=== PATIENT | female | born 1995 | race Hispanic/Latino ===

== ENCOUNTER 2018-01-06 18:08 | Emergency (ER) | payer BC, OTHER ==
[2018-01-06] MEDS ORDERED: Sodium Chloride 0.9% 1,000 ML IV STA ×2 (18:25)
[2018-01-06] MEDS ORDERED: Multivitamin (MVI) 10 ML, Thiamine 100 MG, Folic Acid 1 MG in Dextrose 5%/0.45% NS 1,00... IV ONE (18:30)
--- NOTE | 2018-01-06 18:45 | ED PDOC ---
HPI:Nausea, Vomiting, Diarrhea Time Seen by Provider: 01/06/18 18:17 Chief Complaint (Nursing): GI Problem Chief Complaint (Provider): GI Problem History Per: Other (boyfriend) History/Exam Limitations: clinical condition (excessive vomiting) Onset/Duration Of Symptoms: Days (x2) Current Symptoms Are (Timing): Still Present Context: Food Additional Complaint(s): 22 year old female arrives to ED with intractable vomiting associated with fever , bodyaches and severe generalized weakness ongoing since last night. History obtained from boyfriend as patient is unable to answer due to clinical condition. Patient has not been able to tolerate food or liquids and has no recent sick contacts. Her boyfriend reports that patient ate bar food and drank alcohol last night. Over the last few hours she has been lethargic and had near fainting episodes. PMD: none provided Past Medical History Reviewed: Historical Data, Nursing Documentation, Vital Signs Vital Signs: Last Vital Signs Temp 104.2 F H 01/06/18 18:12 Pulse 121 H 01/06/18 18:39 Resp 18 01/06/18 18:39 BP 106/45 L 01/06/18 18:39 Pulse Ox 97 01/06/18 18:39 - Medical History PMH: No Chronic Diseases - Surgical History Surgical History: No Surg Hx - Family History Family History: States: Unknown Family Hx - Social History Current smoker - smoking cessation education provided: No Alcohol: Social Drugs: Denies - Home Medications Home Medications: Ambulatory Orders Medication Instructions Recorded Ciprofloxacin HCl [Cipro] 250 mg PO BID #14 tab 01/06/18 Multivitamin [Multi-Vitamin Daily] 1 tab PO DAILY 01/06/18 Ondansetron ODT [Zofran ODT] 1 odt PO Q6 PRN #20 odt 01/06/18 - Allergies Allergies/Adverse Reactions: Allergies Allergy/AdvReac Type Severity Reaction Status Date / Time No Known Allergies Allergy Verified 01/06/18 18:12 Review of Systems ROS Statement: Except As Marked, All Systems Reviewed And Found Negative Constitutional: Positive for: Fever, Weakness (severe), Malaise, Other ( bodyaches) Gastrointestinal: Positive for: Nausea, Vomiting. Negative for: Other (PO/ fluid toleration) Physical Exam - Reviewed Nursing Documentation Reviewed: Yes Vital Signs Reviewed: Yes - Physical Exam Appears: Positive for: Uncomfortable, In Acute Distress (gastrointestinal distress) Head Exam: Positive for: ATRAUMATIC, NORMOCEPHALIC Skin: Positive for: Warm, Dry, Pallor Eye Exam: Positive for: EOMI, PERRL ENT: Positive for: Pharynx Is (clear), Other (tacky mucous membranes) Neck: Positive for: Painless ROM, Supple Cardiovascular/Chest: Positive for: Tachycardia (with regular rhythm,). Negative for: Murmur Respiratory: Positive for: Normal Breath Sounds Gastrointestinal/Abdominal: Positive for: Normal Exam, Soft. Negative for: Tenderness, Mass, Distended, Guarding, Rebound Back: Positive for: Normal Inspection. Negative for: Decreased ROM Extremity: Positive for: Normal ROM. Negative for: Deformity Lymphatic: Negative for: Adenopathy Neurologic/Psych: Positive for: Mood/Affect (tired), Other (follows verbal commands). Negative for: Motor/Sensory Deficits - Laboratory Results Result Diagrams: 01/06/18 18:37 01/06/18 18:37 - ECG O2 Sat by Pulse Oximetry: 97 (RA) Pulse Ox Interpretation: Normal Medical Decision Making Medical Decision Making: Initial Impression: Intractable vomiting Differential includes but not limited to: gastroenteritis, gastritis, dehydration, electrolyte abnormality, sepsis Initial Plan: * VBG * Alcohol serum * CMP * HCG * Lipase * Magnesium * Phosphorus * Urine * Urine dipstick * CBC * NS 1,000ml IV per 1,000 mls/hr * Pepcid 20mg IVP * Reglan 10mg IV * Tylenol 650mg MS * Zofran 8mg IV * Blood culture * Urine cuture * Accucheck * UA Labs c/w dehydration and severe sepsis. Aggressive fluid hydration continued. 2100 Pt appears markedly better. Vitals and color improved. Reports feeling better, tolerating water 2145 VBG demonstrates correction of lactic acidosis. Pt tolerating PO. 2230 No further episodes of vomiting. Eager to be discharged. Findings d/w pt. Stable for discharge. Scribe Attestation: Documented by Yaneth Escobedo, acting as a scribe for Marjorie Hamilton MD. Provider Scribe Attestation: All medical record entries made by the Scribe were at my direction and personally dictated by me. I have reviewed the chart and agree that the record accurately reflects my personal performance of the history, physical exam, medical decision making, and the department course for this patient. I have also personally directed, reviewed, and agree with the discharge instructions and disposition. Disposition - Clinical Impression Clinical Impression: Vomiting, Dehydration Counseled Patient/Family Regarding: Studies Performed, Diagnosis, Need For Followup - Disposition Referrals: [facility] [place] [Outside] (FOLLOW UP WITH [facility] TOMORROW FOR REEVALUATION AND FOR REFERRAL TO PRIMARY CARE.) [facility] [Outside] Disposition: Routine/Home Disposition Time: 22:25 Condition: IMPROVED Additional Instructions: CONTINUE TO TAKE TYLENOL FOR FEVER DRINK PLENTY OF HYDRATING FLUIDS FOR THE REST OF THE EVENING. BLAND DIET TOMORROW AND ADVANCE TOLERATED RETURN TO ER FOR: --INTRACTABLE PAIN OR VOMITING --FAINTING OR NEAR FAINTING --DIFFICULTY BREATHING -- GISELE WELCH, thank you for letting us take care of you today. Your provider was Marjorie Hamilton MD and you were treated for intractable vomiting and fever. The emergency medical care you received today was directed at your acute symptoms. If you were prescribed any medication, please fill it and take as directed. It may take several days for your symptoms to resolve. Return to the Emergency Department if your symptoms worsen, do not improve, or if you have any other problems. Please contact your doctor or call one of the physicians/clinics you have been referred to that are listed on the Patient Visit Information form that is included in your discharge packet. Bring any paperwork you were given at discharge with you along with any medications you are taking to your follow up visit. Our treatment cannot replace ongoing medical care by a primary care provider outside of the emergency department. Thank you for allowing the [facility] [place] team to be part of your care today. If you had a blood, urine, or wound culture: It will take several days for the results, if any change in treatment is needed we will contact you. Prescriptions: Ciprofloxacin HCl [Cipro] 250 mg PO BID #14 tab Ondansetron ODT [Zofran ODT] 1 odt PO Q6 PRN #20 odt PRN Reason: Nausea/Vomiting Instructions: Urinary Tract Infections in Adults, Dehydration, Adult (DC), Nausea and Vomiting, Adult Forms: [facility] ED School/Work Excuse
[2018-01-06 18:47] LABS: BASO % 0.4 % (0.0-2.0); EOS % 0.1 % (0.0-4.0); HEMOGLOBIN 13.2 g/dL (12.0-16.0); LYMPH # 1.3 K/uL (1.0-4.3); LYMPH % 15.4 % (20.0-40.0); MEAN CELL VOLUME 90.4 fl (81.0-99.0); MEAN CORPUSCULAR HEMOGLOBIN 30.3 pg (27.0-31.0); MEAN CORPUSCULAR HGB CONC 33.5 g/dL (33.0-37.0); MEAN PLATELET VOLUME 10.1 fl (7.2-11.7); MONO # 0.2 K/uL (0.0-0.8); MONO % 2.9 % (0.0-10.0); NEUT # 6.7 K/uL (1.8-7.0); NEUT % 81.2 % (50.0-75.0); RBC 4.36 Mil/uL (3.80-5.20); RED CELL DISTRIBUTION WIDTH 13.1 % (11.5-14.5); WHITE BLOOD COUNT 8.2 K/uL (4.8-10.8)
[2018-01-06 18:48] LABS: VENOUS BLOOD GAS BASE EXCESS -0.4 mmol/L (0.0-2.0); VENOUS BLOOD GAS PCO2 24 mmHg (40-60); VENOUS BLOOD GAS PO2 37 mm/Hg (30-55); VENOUS BLOOD PH 7.54 (7.32-7.43)
[2018-01-06 18:51] LABS: ALB/GLOB RATIO 1.5 (1.0-2.1); ALBUMIN 4.3 g/dL (3.5-5.0); ALT/SGPT 27 U/L (9-52); AST/SGOT 22 U/L (14-36); BLOOD UREA NITROGEN 11 mg/dl (7-17); CALCIUM 9.6 mg/dL (8.4-10.2); GFR AFRICAN-AMERICAN > 60; GFR NON-AFRICAN AMERICAN > 60
[2018-01-06 19:13] LABS: LIPASE 67 U/L (23-300)
[2018-01-06] MEDS ORDERED: Magnesium Sulfate 2 gm/50 ml 2 GM/50 ML BAG IVPB ONE (19:15)
[2018-01-06] MEDS ORDERED: Magnesium Sulfate 2 gm/50 ml 2 GM/50 ML BAG ONE (19:35)
[2018-01-06 20:28] LABS: SQUAMOUS EPITHIAL 6 /hpf (0-5); URINE BACTERIA OCC (<OCC); URINE BILIRUBIN NEGATIVE (NEGATIVE); URINE BLOOD NEGATIVE (NEGATIVE); URINE CLARITY SLIGHTY-CLOUDY (Clear); URINE COLOR YELLOW (YELLOW); URINE GLUCOSE (UA) NEG (Normal); URINE LEUKOCYTE ESTERASE NEG Leu/uL (Negative); URINE PROTEIN 30 mg/dL (NEGATIVE); URINE UROBILINOGEN 0.2-1.0 mg/dL (0.2-1.0)
[2018-01-06 21:40] VITALS: RESP 16; TEMP 98.7
[2018-01-06 21:48] LABS: VENOUS BLOOD GAS BASE EXCESS -0.1 mmol/L (0.0-2.0); VENOUS BLOOD GAS PCO2 36 mmHg (40-60); VENOUS BLOOD GAS PO2 40 mm/Hg (30-55); VENOUS BLOOD PH 7.43 (7.32-7.43)
[2018-01-06 22:36] VITALS: BP 110/59; PULSE 87
[2018-01-07 16:18] VITALS: O2SAT 97
== END 2018-01-06 22:37 | disposition home or self-care (01) ==
LOC: H.ER 18:08
DX: R11.10 Vomiting, unspecified (principal); E86.0 Dehydration; E87.2 Acidosis
CPT/HCPCS: 80053; 81003; 81025; 82803; 82948; 83690; 83735; 84100; 84703; 85025; 87040; 87086; 96365; 96375; 99285; G0480; J2405; J2765; J3411; J7030; J7042

== ENCOUNTER 2018-01-08 17:00 | Inpatient (IN) | payer BC ==
[2018-01-08] MEDS ORDERED: Sodium Chloride 0.9% 1,000 ML IV STA (17:30)
--- NOTE | 2018-01-08 17:51 | ED PDOC ---
HPI: Fever Fever Onset Was: 01/01/18 (see HPI section at end of chart) Past Medical History Reviewed: Historical Data, Nursing Documentation, Vital Signs Vital Signs: Last Vital Signs Temp 100.2 F H 01/08/18 20:19 Pulse 97 H 01/08/18 20:19 Resp 18 01/08/18 20:19 BP 129/70 01/08/18 20:19 Pulse Ox 99 01/08/18 20:19 - Medical History PMH: No Chronic Diseases - Surgical History Other surgeries: spur removal from feet - Family History Family History: States: Unknown Family Hx - Social History Current smoker - smoking cessation education provided: No Alcohol: None Drugs: Denies - Home Medications Home Medications: Ambulatory Orders Medication Instructions Recorded Ciprofloxacin HCl [Cipro] 250 mg PO BID #14 tab 01/06/18 Multivitamin [Multi-Vitamin Daily] 1 tab PO DAILY 01/06/18 Ondansetron ODT [Zofran ODT] 1 odt PO Q6 PRN #20 odt 01/06/18 - Allergies Allergies/Adverse Reactions: Allergies Allergy/AdvReac Type Severity Reaction Status Date / Time No Known Allergies Allergy Verified 01/06/18 18:12 Review of Systems ROS Statement: Except As Marked, All Systems Reviewed And Found Negative Constitutional: Positive for: Fever Gastrointestinal: Positive for: Nausea, Vomiting Musculoskeletal: Positive for: Back Pain Physical Exam - Reviewed Nursing Documentation Reviewed: Yes Vital Signs Reviewed: Yes - Physical Exam Appears: Positive for: No Acute Distress (but febrile) Head Exam: Positive for: ATRAUMATIC Skin: Positive for: Normal Color, Diaphoresis Eye Exam: Positive for: Normal appearance ENT: Positive for: Normal ENT Inspection Neck: Positive for: Normal, Painless ROM, Supple Cardiovascular/Chest: Positive for: Tachycardia Respiratory: Positive for: Normal Breath Sounds. Negative for: Accessory Muscle Use, Respiratory Distress Gastrointestinal/Abdominal: Positive for: Normal Exam, Soft. Negative for: Tenderness Back: Positive for: L CVA Tenderness, R CVA Tenderness Extremity: Positive for: Normal ROM Neurologic/Psych: Positive for: Alert, Oriented (x3). Negative for: Motor/ Sensory Deficits - Laboratory Results Result Diagrams: 01/08/18 17:33 01/08/18 18:00 - ECG O2 Sat by Pulse Oximetry: 98 (RA) Pulse Ox Interpretation: Normal Medical Decision Making Medical Decision Making: pt febrile at 102.6 and tachycardic at 110bpm. Time: 1729 Initial Impression: sepsis, pyelonephritis, dehydration Initial Plan: --VBG --EKG --CMP --Magnesium --Phosphorus --CBC with differential --CXR portable --Lactated ringers 4500ml IV --Motrin 600 mg PO --Normal saline IV --Rocephin 1 gm Sodium Chloride 0.9% 100 ml IVPB --Blood culture --Urine culture --Urinalysis Pt on re-eval appears to be improved. Pt reports she still feels hot. repeat temp: 100.7 F IV Rocpehin running WBC 9.8 Lactate 1.7 Due to failed outpt therapy, Pt placed in observation for continued IV antibiotics and continued evaluation and management. Case discussed with medical on-call, Dr. Redmond, arrangements made for observation Scribe Attestation: Documented by Whit Philip, acting as a scribe for Marjorie Cedeño PA-C. Provider Scribe Attestation: All medical record entries made by the Scribe were at my direction and personally dictated by me. I have reviewed the chart and agree that the record accurately reflects my personal performance of the history, physical exam, medical decision making, and the department course for this patient. I have also personally directed, reviewed, and agree with the discharge instructions and disposition. Disposition - Clinical Impression Clinical Impression: Pyelonephritis, Fever in adult - Patient ED Disposition Is Patient to be Admitted: Yes - Disposition Disposition Time: 21:13 Condition: STABLE Forms: [facility] (Swiss) - POA Present On Arrival: None HPI History Of Present Illness: 22 year old female presents to the ED for the second time this week for continued fever, back pain, and intermittent nausea and vomiting. Patient reports she was evaluated three days ago for the same complaints, receiving IV fluids after being told she was dehydrated and "possibly septic." After pt reports feeling better that day, she was d/c with a UTI and given a script for Cipro, which she has been compliant with. She notes that she has been taking Tylenol and Motrin, last dose around 0900, but the persistence prompted her visit. PMD: none provided
[2018-01-08] MEDS ORDERED: cefTRIAXone (Rocephin) 1 gm Inj ONE (18:04)
[2018-01-08 18:05] LABS: VENOUS BLOOD GAS BASE EXCESS 3.7 mmol/L (0.0-2.0); VENOUS BLOOD GAS PCO2 30 mmHg (40-60); VENOUS BLOOD GAS PO2 27 mm/Hg (30-55); VENOUS BLOOD PH 7.54 (7.32-7.43)
[2018-01-08 18:14] LABS: BASO % 0.1 % (0.0-2.0); HEMOGLOBIN 13.5 g/dL (12.0-16.0); LYMPH # 0.9 K/uL (1.0-4.3); LYMPH % 8.7 % (20.0-40.0); MEAN CELL VOLUME 90.1 fl (81.0-99.0); MEAN CORPUSCULAR HEMOGLOBIN 30.8 pg (27.0-31.0); MEAN CORPUSCULAR HGB CONC 34.1 g/dL (33.0-37.0); MEAN PLATELET VOLUME 9.7 fl (7.2-11.7); MONO # 0.8 K/uL (0.0-0.8); MONO % 8.4 % (0.0-10.0); NEUT # 8.1 K/uL (1.8-7.0); NEUT % 82.8 % (50.0-75.0); PLATELET COUNT 143 K/uL (130-400); RBC 4.39 Mil/uL (3.80-5.20); RED CELL DISTRIBUTION WIDTH 13.2 % (11.5-14.5); WHITE BLOOD COUNT 9.8 K/uL (4.8-10.8)
[2018-01-08 18:37] LABS: ALB/GLOB RATIO 1.3 (1.0-2.1); ALBUMIN 4.2 g/dL (3.5-5.0); ALT/SGPT 32 U/L (9-52); AST/SGOT 22 U/L (14-36); BLOOD UREA NITROGEN 6 mg/dl (7-17); CALCIUM 9.4 mg/dL (8.4-10.2); GFR AFRICAN-AMERICAN > 60; GFR NON-AFRICAN AMERICAN > 60
[2018-01-08 19:13] LABS: SQUAMOUS EPITHIAL 3 /hpf (0-5); URINE BILIRUBIN NEGATIVE (NEGATIVE); URINE BLOOD MODERATE (NEGATIVE); URINE CLARITY CLOUDY (Clear); URINE COLOR YELLOW (YELLOW); URINE GLUCOSE (UA) NEG (Normal); URINE LEUKOCYTE ESTERASE SMALL Leu/uL (Negative); URINE PROTEIN 100 mg/dL (NEGATIVE)
[2018-01-08 20:11] LABS: HYPOCHROMIC SLIGHT; LYMPHOCYTE 11 % (20-50); MICROCYTOSIS SLIGHT; MONOCYTE 8 % (0-10); NEUTROPHIL 81 % (42-75); PLATELET ESTIMATE NORMAL (NORMAL); TOTAL CELLS COUNTED 100
[2018-01-08] MEDS ORDERED: Potassium Chloride 20 mEq ER Tab PO ONE ×2 (20:14→23:17)
[2018-01-09] MEDS: Sodium Chloride 0.9% 1,000 ML IV SCH ×3 (01:32→17:25)
[2018-01-09 06:26] LABS: HEMOGLOBIN 11.5 g/dL (12.0-16.0); MEAN CORPUSCULAR HEMOGLOBIN 30.6 pg (27.0-31.0); RBC 3.75 Mil/uL (3.80-5.20); RED CELL DISTRIBUTION WIDTH 13.2 % (11.5-14.5); WHITE BLOOD COUNT 7.6 K/uL (4.8-10.8)
[2018-01-09 06:59] LABS: ALB/GLOB RATIO 1.1 (1.0-2.1); ALT/SGPT 26 U/L (9-52); AST/SGOT 17 U/L (14-36); BLOOD UREA NITROGEN 6 mg/dl (7-17); CALCIUM 8.6 mg/dL (8.4-10.2); GFR AFRICAN-AMERICAN > 60; GFR NON-AFRICAN AMERICAN > 60
--- NOTE | 2018-01-09 07:40 | CARD ---
APPROVED REPORT Date of service: 01/08/2018 <Conclusion> Sinus tachycardia Otherwise normal ECG
--- NOTE | 2018-01-09 09:15 | RAD ---
Date of service: 01/08/2018 HISTORY: Sepsis Patient COMPARISON: No prior. FINDINGS: LUNGS: The lungs are well inflated and clear. PLEURA: No significant pleural effusion identified, no pneumothorax apparent. CARDIOVASCULAR: Normal. OSSEOUS STRUCTURES: No significant abnormalities. VISUALIZED UPPER ABDOMEN: Normal. OTHER FINDINGS: None. IMPRESSION: No active pulmonary disease.
--- NOTE | 2018-01-09 11:46 | US ---
Date of service: 01/08/2018 PROCEDURE: Ultrasound of the Kidneys HISTORY: pyelo b/l COMPARISON: None available. TECHNIQUE: Sonogram of the kidneys. FINDINGS: RIGHT KIDNEY: Measures: 4.4 x 4.7 x 11.2 cm. Heterogeneous areas of abnormal echo characteristics prickly affecting the mid and lower pole regions consistent with clinically suspected pyelonephritis. No stone, solid mass lesion or hydronephrosis visualized. LEFT KIDNEY: Measures: 4.6 x 4.8 x 10.8 cm. Heterogeneous areas of abnormal echo characteristics primarily affecting the midpole region consistent with clinically suspected pyelonephritis. No stone, solid mass lesion or hydronephrosis visualized. OTHER FINDINGS: None. IMPRESSION: Ultrasound criteria indicative of acute pyelonephritis bilaterally are. Otherwise no suspicious masses, hydronephrosis or calculus disease.
--- NOTE | 2018-01-09 23:34 | CP.PCM.HP ---
History of Present Illness - History of Present Illness History of Present Illness: This is a 22 y/o female admitted for persistent right flank pain, dysuria and fever. She had visisted the Er few days ago foro the same symptoms and was sent home on Cipro. Her symptoms persisted hence sought ER eval. Urine C and S performed few days ago showed E coli sensitive to Cipro. Patient however claims that she did not seemm to have any improvement of symptoms since she was started on Cipro. Present on Admission - Present on Admission Any Indicators Present on Admission: No History of DVT/PE: No History of Uncontrolled Diabetes: No Urinary Catheter: No Decubitus Ulcer Present: No Past Patient History - Past Medical History & Family History Past Medical History?: No - Past Social History Smoking Status: Never Smoked - PULMONARY Hx Respiratory Disorders: No - HEMATOLOGICAL/ONCOLOGICAL Hx AIDS: No Hx Human Immunodeficiency Virus (HIV): No - MUSCULOSKELETAL/RHEUMATOLOGICAL Hx Musculoskeletal Disorders: No Hx Falls: No - PSYCHIATRIC Hx Substance Use: No - SURGICAL HISTORY Hx Surgeries: Yes (2 spurs removed from left foot) Other/Comment: foot sx /spur left - ANESTHESIA Hx Anesthesia: Yes Hx Anesthesia Reactions: No Meds Allergies/Adverse Reactions: Allergies Allergy/AdvReac Type Severity Reaction Status Date / Time No Known Allergies Allergy Verified 01/06/18 18:12 Physical Exam - Eye Exam Eye Exam: Normal appearance - ENT Exam ENT Exam: Mucous Membranes Moist - Cardiovascular Exam Cardiovascular Exam: REGULAR RHYTHM - GI/Abdominal Exam GI & Abdominal Exam: Normal Bowel Sounds Additional comments: no direct or rebound tenderness in any quadrant - Exam Additional comments: tenderness right flank area - Neurological Exam Neurological exam: CN II-XII Intact - Psychiatric Exam Psychiatric exam: Normal Mood Results - Vital Signs Recent Vital Signs: Last Vital Signs Temp 99.5 F 01/09/18 22:16 Pulse 76 01/09/18 17:00 Resp 18 01/09/18 17:00 BP 115/79 01/09/18 17:00 Pulse Ox 98 01/09/18 17:00 - Labs Result Diagrams: 01/09/18 05:20 01/09/18 05:20 Labs: Laboratory Results - last 24 hr 01/09/18 01/09/18 05:20 05:20 WBC 7.6 RBC 3.75 L Hgb 11.5 L D Hct 33.8 L MCV 90.0 MCH 30.6 MCHC 34.0 RDW 13.2 Plt Count 123 L D Sodium 142 Potassium 3.8 Chloride 109 H Carbon Dioxide 23 Anion Gap 14 BUN 6 L Creatinine 0.8 Est GFR ( Amer) > 60 Est GFR (Non-Af Amer) > 60 Random Glucose 88 Calcium 8.6 Total Bilirubin 0.4 AST 17 ALT 26 Alkaline Phosphatase 43 Total Protein 5.7 L Albumin 3.0 L D Globulin 2.7 Albumin/Globulin Ratio 1.1 Assessment & Plan (1) Pyelonephritis Status: Acute (2) Dehydration Status: Acute - Assessment and Plan (Free Text) Plan: start V antibiotics hydrate repeat cbc cm[p ID consult
--- NOTE | 2018-01-10 12:05 | CP.PCM.CON ---
History of Present Illness - History of Present Illness History of Present Illness: 22 y/o female admitted for persistent right flank pain, dysuria and fever. She had visisted the Er few days ago for the same symptoms and was sent home on Cipro. Her symptoms persisted hence sought ER eval. PMH infrequent UTI's SH non drinker non smoker denies IVDU FH- n/c NKDA Review of Systems - Review of Systems All systems: reviewed and no additional remarkable complaints except - Constitutional Constitutional: absent: As Per HPI, Anorexia, Chills, Daytime Sleepiness, Excessive Sweating, Fatigue, Fever, Frequent Falls, Headache, Increased Appetite , Lethargy, Malaise, Night Sweats, Snoring, Sleep Apnea, Weight Gain, Weight Loss, Weakness, Other - EENT Eyes: absent: As Per HPI, Blind Spots, Blurred Vision, Change in Vision, Decreased Night Vision, Diplopia, Discharge, Dry Eye, Exophthalmos, Floaters, Irritation, Itchy Eyes, Loss of Peripheral Vision, Pain, Photophobia, Requires Corrective Lenses, Sees Flashes, Spots in Vision, Tunnel Vision, Other Visual Disturbances, Loss of Vision, Other Ears: absent: As Per HPI, Decreased Hearing, Ear Discharge, Ear Pain, Tinnitus, Abnormal Hearing, Disequilibrium, Dizziness, Other Nose/Mouth/Throat: absent: As Per HPI, Epistaxis, Nasal Congestion, Nasal Discharge, Nasal Obstruction, Nasal Trauma, Nose Pain, Post Nasal Drip, Sinus Pain, Sinus Pressure, Bleeding Gums, Change in Voice, Dental Pain, Dry Mouth, Dysphagia, Halitosis, Hoarsness, Lip Swelling, Mouth Lesions, Mouth Pain, Odynophagia, Sore Throat, Throat Swelling, Tongue Swelling, Facial Pain, Neck Pain, Neck Mass, Other - Breasts Breasts: absent: As Per HPI, Change in Shape, Mass, Pain, Nipple Discharge, Nipple Inversion, Skin Changes, Swelling, Other - Cardiovascular Cardiovascular: absent: As Per HPI, Acrocyanosis, Chest Pain, Chest Pain at Rest , Chest Pain with Activity, Claudication, Diaphoresis, Dyspnea, Dyspnea on Exertion, Edema, Irregular Heart Rhythm, Pain Radiating to Arm/Neck/Jaw, Leg Edema, Leg Ulcers, Lightheadedness, Orthopnea, Palpitations, Paroxysmal Nocturnal Dyspnea, Pedal Edema, Radiating Pain, Rapid Heart Rate, Slow Heart Rate, Syncope, Other - Respiratory Respiratory: absent: As Per HPI, Cough, Dyspnea, Hemoptysis, Dyspnea on Exertion , Wheezing, Snoring, Stridor, Pain on Inspiration, Chest Congestion, Excessive Mucous Production, Change in Mucous Color, Pain with Coughing, Other - Gastrointestinal Gastrointestinal: absent: As Per HPI, Abdominal Pain, Belching, Bloating, Change in Bowel Habits, Change in Stool Character, Coffee Ground Emesis, Constipation, Cramping, Diarrhea, Dyspepsia, Dysphagia, Early Satiety, Excessive Flatus, Fecal Incontinence, Heartburn, Hematemesis, Hematochezia, Loose Stools, Melena, Nausea, Odynophagia, Temesmus, Vomiting, Other - Genitourinary Genitourinary: As Per HPI, Difficulty Urinating, Flank Pain - Reproductive: Female Reproductive:Female: absent: As Per HPI, Amenorrhea, Amenorrhea/ Control, Currently Menstual, Cycle <21 Days, Cycle >35 Days, Cycle Variable, Menses 1-7 Days, Menses >/= 8 Days, Menses Variable, Cycle > 4 Weeks Between, No Menses for 6 Months, Heavy Menses, Light Menses, Normal Menses, Spotting Between Cycles , S/P Hysterectomy, Menopausal, Post Menopausal, Premenarche, Abnormal Vaginal Bleeding, Dysmenorrhea, Dyspareunia, Genital Lesions, Genital Pruritis, Pelvic Pain, Prolapse Symptoms, Sexual Dysfunction, Vaginal Discharge, Vaginal Dryness , Vaginal Odor, Vaginal Pruritis, Other - Menstruation Menstruation: absent: As Per HPI, Amenorrhea, Amenorrhea/ Control, Currently Menstual, Cycle <21 Days, Cycle >35 Days, Cycle Variable, Menses 1-7 Days, Menses >/= 8 Days, Menses Variable, Cycle > 4 Weeks Between, No Menses for 6 Months, Heavy Menses, Light Menses, Normal Menses, Spotting Between Cycles , S/P Hysterectomy, Menopausal, Post Menopausal, Premenarche, Abnormal Vaginal Bleeding, Dysmenorrhea, Other - Musculoskeletal Musculoskeletal: absent: As Per HPI, Abnormal Gait, Arthralgias, Atrophy, Back Pain, Deformity, Joint Swelling, Limited Range of Motion, Loss of Height, Muscle Cramps, Muscle Weakness, Myalgias, Neck Pain, Numbness, Radiating Pain into Limb, Stiffness, Tingling, Other - Integumentary Integumentary: absent: As Per HPI, Acne, Alopecia, Bleeding Lesions, Change in Hair, Change in Nails, Change in Pigmentation, Changing Lesions, Dry Skin, Erythema, Furuncle, Hirsutism, Lesions, New Lesions, Non-Healing Lesions, Photosensitivity, Pruritus, Rash, Skin Pain, Skin Ulcer, Sores, Striae, Swelling , Unusual Bruising, Wounds, Jaundice, Other - Neurological Neurological: absent: As Per HPI, Abnormal Gait, Abnormal Hearing, Abnormal Movements, Abnormal Speech, Behavioral Changes, Burning Sensations, Confusion, Convulsions, Disequilibrium, Dizziness, Numbness, Focal Weakness, Frequent Falls , Headaches, Lack of Coordination, Loss of Vision, Memory Loss, Paresthesias, Radicular Pain, Restless Legs, Sensory Deficit, Syncope, Tingling, Tremor, Vertigo, Weakness, Other Visual Disturbances, Other - Psychiatric Psychiatric: absent: As Per HPI, Abnormal Sleep Pattern, Anhedonia, Anxiety, Auditory Hallucinations, Behavioral Changes, Change in Appetite, Change in Libido, Confusion, Depression, Difficulty Concentrating, Hallucinations, Homicidal Ideation, Hopelessness, Irritability, Memory Loss, Mood Swings, Panic Attacks, Paranoia, Suicidal Ideation, Visual Hallucinations, Tactile Hallucinations, Other - Endocrine Endocrine: absent: As Per HPI, Change in Body Appearance, Change in Libido, Cold Intolorance, Deepening of Voice, Excessive Sweating, Fatigue, Flushing, Heat Intolorance, Increase in Ring/Shoe/Hat Size, Palpitations, Polydipsia, Polyphagia, Polyuria, Other - Hematologic/Lymphatic Hematologic: absent: As Per HPI, Easy Bleeding, Easy Bruising, Lymphadenopathy, Other Past Patient History - Past Medical History & Family History Past Medical History?: No - Past Social History Smoking Status: Never Smoked - PULMONARY Hx Respiratory Disorders: No - HEMATOLOGICAL/ONCOLOGICAL Hx AIDS: No Hx Human Immunodeficiency Virus (HIV): No - MUSCULOSKELETAL/RHEUMATOLOGICAL Hx Musculoskeletal Disorders: No Hx Falls: No - PSYCHIATRIC Hx Substance Use: No - SURGICAL HISTORY Hx Surgeries: Yes (2 spurs removed from left foot) Other/Comment: foot sx /spur left - ANESTHESIA Hx Anesthesia: Yes Hx Anesthesia Reactions: No Meds Allergies/Adverse Reactions: Allergies Allergy/AdvReac Type Severity Reaction Status Date / Time No Known Allergies Allergy Verified 01/06/18 18:12 - Medications Medications: Current Medications Acetaminophen (Tylenol 325mg Tab) 650 mg PO Q4 PRN PRN Reason: Pain, Mild (1-3) Last Admin: 01/10/18 08:50 Dose: 650 mg Acetaminophen (Tylenol 325mg Tab) 650 mg PO Q4 PRN PRN Reason: fever Last Admin: 01/09/18 08:23 Dose: 650 mg Ceftriaxone Sodium 1 gm/ (Sodium Chloride) 100 mls @ 100 mls/hr IVPB Q12 JARRETT PRN Reason: Protocol Last Admin: 01/10/18 08:51 Dose: 100 mls/hr Ibuprofen (Motrin Tab) 600 mg PO Q8 PRN PRN Reason: Pain, moderate (4-7) Last Admin: 01/09/18 14:25 Dose: 600 mg Ondansetron HCl (Zofran Inj) 4 mg IVP Q6 PRN PRN Reason: Nausea/Vomiting Last Admin: 01/09/18 08:23 Dose: 4 mg Physical Exam - Constitutional Appears: Non-toxic, Chronically Ill - Head Exam Head Exam: ATRAUMATIC, NORMAL INSPECTION, NORMOCEPHALIC - Eye Exam Eye Exam: EOMI, PERRL. absent: Scleral icterus - ENT Exam ENT Exam: Mucous Membranes Dry, Normal External Ear Exam, Normal Oropharynx - Neck Exam Neck exam: Negative for: Lymphadenopathy - Respiratory Exam Respiratory Exam: Decreased Breath Sounds, Clear to Auscultation Bilateral - Cardiovascular Exam Cardiovascular Exam: REGULAR RHYTHM, +S1, +S2 - GI/Abdominal Exam GI & Abdominal Exam: Diminished Bowel Sounds, Distended, Soft, Tenderness - Rectal Exam Rectal Exam: Deferred - Exam Exam: NORMAL INSPECTION - Extremities Exam Extremities exam: Positive for: pedal pulses present. Negative for: calf tenderness, pedal edema, tenderness - Back Exam Back exam: absent: CVA tenderness (L), CVA tenderness (R), paraspinal tenderness - Neurological Exam Neurological exam: Alert, CN II-XII Intact, Oriented x3, Reflexes Normal - Psychiatric Exam Psychiatric exam: Normal Mood - Skin Skin Exam: Dry Results - Vital Signs Recent Vital Signs: Last Vital Signs Temp 98.4 F 01/10/18 09:50 Pulse 79 01/10/18 09:00 Resp 19 01/10/18 09:00 BP 124/74 01/10/18 09:00 Pulse Ox 99 01/10/18 09:00 - Labs Result Diagrams: 01/09/18 05:20 01/09/18 05:20 Assessment & Plan (1) Fever in adult Status: Acute (2) Pyelonephritis Status: Acute - Assessment and Plan (Free Text) Assessment: cont IV antibiotics for pyelonephritis CT abd/ pelvis eval will follow
[2018-01-10] MEDS ORDERED: Iohexol 240 (50 ml) PO ONE (14:54)
--- NOTE | 2018-01-10 15:08 | CP.PCM.PN ---
<Olga Rodriguez - Last Filed: 01/10/18 16:20> Subjective - Date & Time of Evaluation Date of Evaluation: 01/10/18 Time of Evaluation: 11:45 - Subjective Subjective: Pt seen this morning with Dr. Redmond. Sitting comfortably in bed. No acute events overnight but in the morning she had fever 101F at 9 am. Still has L flank pain, but otherwise feels better than when she came in. Objective - Vital Signs/Intake and Output Vital Signs (last 24 hours): Temp Pulse Resp BP Pulse Ox 98.4 F 79 19 124/74 99 01/10/18 09:50 01/10/18 09:00 01/10/18 09:00 01/10/18 09:00 01/10/18 09:00 - Medications Medications: Current Medications Acetaminophen (Tylenol 325mg Tab) 650 mg PO Q4 PRN PRN Reason: Pain, Mild (1-3) Last Admin: 01/10/18 08:50 Dose: 650 mg Acetaminophen (Tylenol 325mg Tab) 650 mg PO Q4 PRN PRN Reason: fever Last Admin: 01/09/18 08:23 Dose: 650 mg Ceftriaxone Sodium 1 gm/ (Sodium Chloride) 100 mls @ 100 mls/hr IVPB Q12 JARRETT PRN Reason: Protocol Last Admin: 01/10/18 08:51 Dose: 100 mls/hr Ibuprofen (Motrin Tab) 600 mg PO Q8 PRN PRN Reason: Pain, moderate (4-7) Last Admin: 01/09/18 14:25 Dose: 600 mg Ondansetron HCl (Zofran Inj) 4 mg IVP Q6 PRN PRN Reason: Nausea/Vomiting Last Admin: 01/09/18 08:23 Dose: 4 mg - Labs Labs: 01/09/18 05:20 01/09/18 05:20 - Constitutional Appears: No Acute Distress - Eye Exam Eye Exam: Normal appearance - Respiratory Exam Respiratory Exam: Clear to Ausculation Bilateral, NORMAL BREATHING PATTERN - Cardiovascular Exam Cardiovascular Exam: REGULAR RHYTHM - GI/Abdominal Exam GI & Abdominal Exam: Soft, Normal Bowel Sounds - Back Exam Back Exam: CVA tenderness (L) - Neurological Exam Neurological Exam: Alert, Oriented x3 - Psychiatric Exam Psychiatric exam: Normal Mood - Skin Skin Exam: Normal Color, Warm Additional comments: numerous tattoos Assessment and Plan (1) Pyelonephritis Status: Acute (2) Fever in adult Status: Acute - Assessment and Plan (Free Text) Plan: - continue with IV hydration and antibiotics; add PO levaquin - tylenol PRN for fever - ID consult, recs appreciated - abdomen and pelvis CT w/ contrast - blood culture pending - reg diet - scds - continue rest of plan as ordered <Tito Redmond - Last Filed: 01/11/18 14:32> Objective - Vital Signs/Intake and Output Vital Signs (last 24 hours): Temp Pulse Resp BP Pulse Ox 97.3 F L 61 20 126/71 97 01/11/18 09:00 01/11/18 09:00 01/11/18 09:00 01/11/18 09:00 01/11/18 09:00 - Medications Medications: Current Medications Acetaminophen (Tylenol 325mg Tab) 650 mg PO Q4 PRN PRN Reason: Pain, Mild (1-3) Last Admin: 01/10/18 22:32 Dose: 650 mg Acetaminophen (Tylenol 325mg Tab) 650 mg PO Q4 PRN PRN Reason: fever Last Admin: 01/09/18 08:23 Dose: 650 mg Ceftriaxone Sodium 1 gm/ (Sodium Chloride) 100 mls @ 100 mls/hr IVPB Q12 JARRETT PRN Reason: Protocol Last Admin: 01/11/18 08:11 Dose: 100 mls/hr Sodium Chloride (Sodium Chloride 0.9%) 1,000 mls @ 80 mls/hr IV .[id number] JARRETT Stop: 01/11/18 19:39 Last Admin: 01/11/18 11:22 Dose: Not Given Ibuprofen (Motrin Tab) 600 mg PO Q8 PRN PRN Reason: Pain, moderate (4-7) Last Admin: 01/09/18 14:25 Dose: 600 mg Levofloxacin (Levaquin) 500 mg PO DAILY JARRETT PRN Reason: Protocol Last Admin: 01/11/18 08:11 Dose: 500 mg Ondansetron HCl (Zofran Inj) 4 mg IVP Q6 PRN PRN Reason: Nausea/Vomiting Last Admin: 01/09/18 08:23 Dose: 4 mg - Labs Labs: 01/09/18 05:20 01/09/18 05:20 Assessment and Plan (1) Pyelonephritis Status: Acute (2) Dehydration Status: Acute - Assessment and Plan (Free Text) Plan: I was present during evaluation and discussed with Dr Romaine luis plans of care and mgt. Tito Redmond M.D.
[2018-01-10] MEDS ORDERED: Sodium Chloride 0.9% 50 ML IV ONE (15:39)
[2018-01-10] MEDS ORDERED: Iohexol 300 100 ML IJ ONE (15:39)
--- NOTE | 2018-01-10 16:38 | CT ---
Date of service: 01/10/2018 PROCEDURE: CT Abdomen and Pelvis with contrast HISTORY: pyelonephritis, UTI COMPARISON: 01/08/2018 renal ultrasound TECHNIQUE: Contrast dose: 90 cc Omnipaque 300 Radiation dose: Total exam DLP = 486.01 mGy-cm. This CT exam was performed using one or more of the following dose reduction techniques: Automated exposure control, adjustment of the mA and/or kV according to patient size, and/or use of iterative reconstruction technique. FINDINGS: LOWER THORAX: Unremarkable. LIVER: Unremarkable. No gross lesion or ductal dilatation. GALLBLADDER AND BILE DUCTS: Unremarkable. PANCREAS: Unremarkable. No gross lesion or ductal dilatation. SPLEEN: Unremarkable. ADRENALS: Unremarkable. No mass. KIDNEYS AND URETERS: Diffusely abnormal contrast-enhancing characteristics of the right kidney with perinephric stranding/ inflammatory change. Similar less pronounced changes identified in the upper half of the left kidney. Findings are consistent with bilateral pyelonephritis right more pronounced, extensive than left. VASCULATURE: Unremarkable. No aortic aneurysm. BOWEL: Constipation without fecal impaction or obstruction. APPENDIX: The distal appendix is top normal in diameter, 7 mm. This could represent early appendicitis. No appreciable periappendiceal inflammatory change. No drainable collection or right lower quadrant fluid identified. PERITONEUM: Unremarkable. No free fluid. No free air. LYMPH NODES: Unremarkable. No enlarged lymph nodes. BLADDER: Unremarkable. REPRODUCTIVE: Bilateral adnexal cysts/ follicles. The largest in the right ovary measures 3.2 x 3.7 cm. BONES: No acute fracture. OTHER FINDINGS: None. IMPRESSION: CT manifestations of pyelonephritis bilaterally right greater than left. Top normal distal appendix. In the appropriate clinical setting appendicitis should be considered Additional benign and/or incidental findings described above.
[2018-01-10] MEDS: levoFLOXacin 500 MG TAB PO SCH (17:47)
--- NOTE | 2018-01-10 18:32 | CP.PCM.PN ---
Subjective - Date & Time of Evaluation Date of Evaluation: 01/10/18 Time of Evaluation: 07:00 - Subjective Subjective: still has fever and pain CT notted consider surgical consult cont IV antibiotics Objective - Vital Signs/Intake and Output Vital Signs (last 24 hours): Temp Pulse Resp BP Pulse Ox 98.6 F 69 18 122/71 100 01/10/18 16:49 01/10/18 16:49 01/10/18 16:49 01/10/18 16:49 01/10/18 16:49 - Medications Medications: Current Medications Acetaminophen (Tylenol 325mg Tab) 650 mg PO Q4 PRN PRN Reason: Pain, Mild (1-3) Last Admin: 01/10/18 08:50 Dose: 650 mg Acetaminophen (Tylenol 325mg Tab) 650 mg PO Q4 PRN PRN Reason: fever Last Admin: 01/09/18 08:23 Dose: 650 mg Ceftriaxone Sodium 1 gm/ (Sodium Chloride) 100 mls @ 100 mls/hr IVPB Q12 JARRETT PRN Reason: Protocol Last Admin: 01/10/18 08:51 Dose: 100 mls/hr Ibuprofen (Motrin Tab) 600 mg PO Q8 PRN PRN Reason: Pain, moderate (4-7) Last Admin: 01/09/18 14:25 Dose: 600 mg Levofloxacin (Levaquin) 500 mg PO DAILY JARRETT PRN Reason: Protocol Last Admin: 01/10/18 17:47 Dose: 500 mg Ondansetron HCl (Zofran Inj) 4 mg IVP Q6 PRN PRN Reason: Nausea/Vomiting Last Admin: 01/09/18 08:23 Dose: 4 mg - Labs Labs: 01/09/18 05:20 01/09/18 05:20 Assessment and Plan (1) Fever in adult Status: Acute (2) Pyelonephritis Status: Acute
[2018-01-10] MEDS: Sodium Chloride 0.9% 1,000 ML IV SCH (21:53)
[2018-01-11] MEDS: levoFLOXacin 500 MG TAB PO SCH (08:11)
[2018-01-11 08:31] VITALS: BP 126/71; PULSE 61; RESP 20; TEMP 97.3; O2SAT 97
[2018-01-11] MEDS: Sodium Chloride 0.9% 1,000 ML IV SCH (11:22)
--- NOTE | 2018-01-11 14:24 | CP.PCM.DIS ---
Provider - Provider Date of Admission: 01/10/18 12:45 Attending physician: Tito Redmond MD Time Spent in preparation of Discharge (in minutes): 30 Hospital Course - Lab Results Lab Results: Micro Results 01/08/18 18:21 Blood Blood Culture - Preliminary NO GROWTH AFTER 48 HOURS 01/08/18 18:00 Blood Blood Culture - Preliminary NO GROWTH AFTER 48 HOURS 01/08/18 18:00 Urine,Clean Catch Urine Culture - Final No Growth (<1,000 CFU/ML) Most Recent Lab Values WBC 7.6 K/uL (4.8-10.8) 01/09/18 05:20 RBC 3.75 Mil/uL (3.80-5.20) L 01/09/18 05:20 Hgb 11.5 g/dL (12.0-16.0) L D 01/09/18 05:20 Hct 33.8 % (34.0-47.0) L 01/09/18 05:20 MCV 90.0 fl (81.0-99.0) 01/09/18 05:20 MCH 30.6 pg (27.0-31.0) 01/09/18 05:20 MCHC 34.0 g/dL (33.0-37.0) 01/09/18 05:20 RDW 13.2 % (11.5-14.5) 01/09/18 05:20 Plt Count 123 K/uL (130-400) L D 01/09/18 05:20 MPV 9.7 fl (7.2-11.7) 01/08/18 17:33 Neut % (Auto) 82.8 % (50.0-75.0) H 01/08/18 17:33 Lymph % (Auto) 8.7 % (20.0-40.0) L 01/08/18 17:33 Bacon % (Auto) 8.4 % (0.0-10.0) 01/08/18 17:33 Eos % (Auto) 0.0 % (0.0-4.0) 01/08/18 17:33 Baso % (Auto) 0.1 % (0.0-2.0) 01/08/18 17:33 Neut # (Auto) 8.1 K/uL (1.8-7.0) H 01/08/18 17:33 Lymph # (Auto) 0.9 K/uL (1.0-4.3) L 01/08/18 17:33 Bacon # (Auto) 0.8 K/uL (0.0-0.8) 01/08/18 17:33 Eos # (Auto) 0.0 K/uL (0.0-0.7) 01/08/18 17:33 Baso # (Auto) 0.0 K/uL (0.0-0.2) 01/08/18 17:33 Neutrophils % (Manual) 81 % (42-75) H 01/08/18 17:33 Lymphocytes % (Manual) 11 % (20-50) L 01/08/18 17:33 Monocytes % (Manual) 8 % (0-10) 01/08/18 17:33 Platelet Estimate Normal (NORMAL) 01/08/18 17:33 Hypochromasia (manual) Slight 01/08/18 17:33 Microcytosis (manual) Slight 01/08/18 17:33 pO2 27 mm/Hg (30-55) L 01/08/18 17:33 VBG pH 7.54 (7.32-7.43) H 01/08/18 17:33 VBG pCO2 30 mmHg (40-60) L 01/08/18 17:33 VBG HCO3 26.6 mmol/L 01/08/18 17:33 VBG Total CO2 26.6 mmol/L (22-28) 01/08/18 17:33 VBG O2 Sat (Calc) 49.9 % (40-65) 01/08/18 17:33 VBG Base Excess 3.7 mmol/L (0.0-2.0) H 01/08/18 17:33 VBG Potassium 3.0 mmol/L (3.6-5.2) L 01/08/18 17:33 Sodium 138.0 mmol/L (132-148) 01/08/18 17:33 Chloride 105.0 mmol/L (98-107) 01/08/18 17:33 Glucose 112 mg/dL (65-105) H 01/08/18 17:33 Lactate 1.7 mmol/L (0.7-2.1) 01/08/18 17:33 FiO2 21.0 % 01/08/18 17:33 Sodium 142 mmol/l (132-148) 01/09/18 05:20 Potassium 3.8 MMOL/L (3.6-5.0) 01/09/18 05:20 Chloride 109 mmol/L (98-107) H 01/09/18 05:20 Carbon Dioxide 23 mmol/L (22-30) 01/09/18 05:20 Anion Gap 14 (10-20) 01/09/18 05:20 BUN 6 mg/dl (7-17) L 01/09/18 05:20 Creatinine 0.8 mg/dl (0.7-1.2) 01/09/18 05:20 Est GFR ( Amer) > 60 01/09/18 05:20 Est GFR (Non-Af Amer) > 60 01/09/18 05:20 Random Glucose 88 mg/dL (65-105) 01/09/18 05:20 Calcium 8.6 mg/dL (8.4-10.2) 01/09/18 05:20 Phosphorus 1.4 mg/dl (2.5-4.5) L 01/08/18 18:00 Magnesium 1.9 MG/DL (1.6-2.3) 01/08/18 18:00 Total Bilirubin 0.4 mg/dl (0.2-1.3) 01/09/18 05:20 AST 17 U/L (14-36) 01/09/18 05:20 ALT 26 U/L (9-52) 01/09/18 05:20 Alkaline Phosphatase 43 U/L (38-126) 01/09/18 05:20 Total Protein 5.7 G/DL (6.3-8.2) L 01/09/18 05:20 Albumin 3.0 g/dL (3.5-5.0) L D 01/09/18 05:20 Globulin 2.7 gm/dL (2.2-3.9) 01/09/18 05:20 Albumin/Globulin Ratio 1.1 (1.0-2.1) 01/09/18 05:20 Procalcitonin 0.84 NG/ML (0.19-0.49) H 01/10/18 18:43 Venous Blood Potassium 3.0 mmol/L (3.6-5.2) L 01/08/18 17:33 Urine Color Yellow (YELLOW) 01/08/18 18:00 Urine Clarity Cloudy (Clear) 01/08/18 18:00 Urine pH 6.0 (5.0-8.0) 01/08/18 18:00 Ur Specific [place] 1.015 (1.003-1.030) 01/08/18 18:00 Urine Protein 100 mg/dL (NEGATIVE) 01/08/18 18:00 Urine Glucose (UA) Neg mg/dL (Normal) 01/08/18 18:00 Urine Ketones 80 mg/dL (NEGATIVE) 01/08/18 18:00 Urine Blood Moderate (NEGATIVE) 01/08/18 18:00 Urine Nitrate Negative (NEGATIVE) 01/08/18 18:00 Urine Bilirubin Negative (NEGATIVE) 01/08/18 18:00 Urine Urobilinogen 2.0 mg/dL (0.2-1.0) H 01/08/18 18:00 Ur Leukocyte Esterase Small Meena/uL (Negative) 01/08/18 18:00 Urine RBC (Auto) 14 /hpf (0-3) H 01/08/18 18:00 Urine Microscopic WBC 35 /hpf (0-5) H 01/08/18 18:00 Ur Squamous Epith Cells 3 /hpf (0-5) 01/08/18 18:00 - Hospital Course Hospital Course: This is a 22 y/o female admitted for recurrent fever and UTI. She was sent initially on Cipro but sx persisted hence was admitted. Noted E cooli sens to Cipro and other IV meds. She was placed on Rocephin and started on Levaquin and did very well. US and CT scan showed bilateral pyelonephritis right worse than left. It was also noted on CT scan that the appendix is top normal in size. Patient had no lower abdominal pain and evaluation on discharge showed no direct or rebound tenderness on the LLQ. Patient was afebrile for more than 24 hours prior to discharge. She was sent home on Levaquin 500 mg Po oD x 7 to 10 days. She was advised to call office if abd pain ensues or fever recurs. Otherwise she was advised to followup in my office next week. Discharge Exam - Head Exam Head Exam: ATRAUMATIC, NORMAL INSPECTION, NORMOCEPHALIC - Eye Exam Eye Exam: Normal appearance - Respiratory Exam Respiratory Exam: NORMAL BREATHING PATTERN - Cardiovascular Exam Cardiovascular Exam: REGULAR RHYTHM - GI/Abdominal Exam GI & Abdominal Exam: Normal Bowel Sounds Additional comments: no direct or rebound tenderness on any quadrant - Neurological Exam Neurological exam: CN II-XII Intact - Psychiatric Exam Psychiatric exam: Normal Mood Discharge Plan - Follow Up Plan Condition: STABLE Disposition: HOME/ ROUTINE Instructions: Fever, Adult (DC), Urinary Tract Infection in Women (DC) Additional Instructions: follow up with primary MD 1 week Advised follow up in my office in 1 week. Referrals: at [facility] [Outside] Pérez Tipton MD [Staff Provider] -
--- NOTE | 2018-01-21 13:05 | PQF ---
PROVIDER RESPONSE TEXT: Patient with sepsis, b/l pyelonephritis, ecoli in urine cx. Sepsis present on admissions REVIEWER QUERY TEXT: Rule Out Sepsis Clarification Sepsis is documented in the Medical Record in the ER. Please clarify whether: -- Patient has sepsis - Please document confirmed, suspected or probable causative organism - Please document confirmed, suspected or probable localized infection - Please clarify if sepsis is related to a device - Please clarify if sepsis was present on admission -- Sepsis was ruled out (include corresponding diagnosis for patient?s clinical picture and treatment ) -- Patient had sepsis which is resolved -- Other, please specify The patient's Clinical Indicators include: Recent visit to the ER on 01/06/18 and was given Cipro for a UTI was told at that time she was "possibl y Septic". Presents now on 01/08/18 with c/o abdominal pain, nausea, vomiting, bilateral flank pain. ER: Initial IMP: sepsis, pyelonephritis, dehydration ID: Fever in adult, pyelonephritis TEMP: 102.6, 103, 100.2, 99.6, 98.3, 99.4, 101.2, 101,2 HR: 110, 103, 97, 98, 98, 74, 90, 90, 91, 76, 77 BP: 128/76, 127/75, 129/70, 124/81 R 16, 20, 18, 16 WBC 9.8 L shift , lactate 1.7, procalcitonin 0.84, Urine CS on 01/06/18: >100,000 CFU E Coli. Treated with Rocephin and Levaquin Query created by: Anne Zamorano on 01/13/2018 6:45 AM Electronically signed by: Tito Redmond MD 01/21/2018 1:03 PM
== END 2018-01-11 16:28 | disposition home or self-care (01) | DRG 872 ==
LOC: H.ER 17:00 → H.ERHOLD 20:59 → H.MEDSURG1 01-09 00:36 → OBSVTOIN 01-10 12:45
PROVIDERS: ADMIT Family Medicine; ATTEND Family Medicine
DX: A41.9 Sepsis, unspecified organism (principal); N12 Tubulo-interstitial nephritis, not specified as acute or chronic; E86.0 Dehydration; B96.20 Unspecified Escherichia coli [E. coli] as the cause of diseases classified elsewhere

== ENCOUNTER 2018-05-06 16:58 | Emergency (ER) | payer BC ==
[2018-05-06 17:03] VITALS: O2SAT 100
[2018-05-06 17:56] LABS: BASO % 0.5 % (0.0-2.0); EOS % 0.4 % (0.0-4.0); HEMOGLOBIN 12.2 g/dL (12.0-16.0); LYMPH # 1.3 K/uL (1.0-4.3); LYMPH % 15.7 % (20.0-40.0); MEAN CELL VOLUME 90.6 fl (81.0-99.0); MEAN CORPUSCULAR HEMOGLOBIN 30.2 pg (27.0-31.0); MEAN CORPUSCULAR HGB CONC 33.3 g/dL (33.0-37.0); MEAN PLATELET VOLUME 10.1 fl (7.2-11.7); MONO # 0.4 K/uL (0.0-0.8); MONO % 4.4 % (0.0-10.0); NEUT # 6.8 K/uL (1.8-7.0); RBC 4.05 Mil/uL (3.80-5.20); RED CELL DISTRIBUTION WIDTH 13.2 % (11.5-14.5); WHITE BLOOD COUNT 8.5 K/uL (4.8-10.8)
[2018-05-06 18:26] LABS: ACETAMINOPHEN < 10.0 ug/ml (10.0-30.0); SALICYLATE < 1.0 mg/dl
[2018-05-06 18:27] LABS: BLOOD UREA NITROGEN 19 mg/dl (7-17); CALCIUM 9.3 mg/dL (8.4-10.2); GFR NON-AFRICAN AMERICAN > 60
[2018-05-06 18:35] LABS: BARBITURATES, UR NEGATIVE (NEGATIVE); BENZODIAZEPINES, UR NEGATIVE (NEGATIVE); OPIATES, UR NEGATIVE (NEGATIVE); PHENCYCLIDINE, UR NEGATIVE (NEGATIVE)
[2018-05-06 18:42] LABS: URINE BILIRUBIN NEGATIVE (NEGATIVE); URINE CLARITY CLEAR (Clear); URINE COLOR YELLOW (YELLOW); URINE GLUCOSE (UA) NEGATIVE (Normal)
[2018-05-06 18:43] LABS: SQUAMOUS EPITHIAL < 1 /hpf (0-5); URINE BLOOD NEGATIVE (NEGATIVE); URINE LEUKOCYTE ESTERASE NEGATIVE Leu/uL (Negative); URINE PROTEIN NEGATIVE (NEGATIVE)
--- NOTE | 2018-05-06 18:54 | ED PDOC ---
HPI: Psych/Substance Abuse Time Seen by Provider: 05/06/18 17:00 Chief Complaint (Nursing): Psychiatric Evaluation Chief Complaint (Provider): Psychiatric Evaluation History Per: Patient Onset/Duration Of Symptoms: Days (x1) Current Symptoms Are (Timing): Still Present Additional Complaint(s): 23 year old female arrives to ED with a complaint of anxiety status post argument with her boyfriend. Patient omits further information with vague answers to questions. Upon arrival to ED, patient is noted to be screaming in bed. PCP: none provided Past Medical History Reviewed: Historical Data, Nursing Documentation, Vital Signs Vital Signs: Last Vital Signs Temp 99 F 05/06/18 17:01 Pulse 120 H 05/06/18 17:01 Resp 20 05/06/18 17:01 BP 143/111 H 05/06/18 17:01 Pulse Ox 100 05/06/18 17:01 - Medical History PMH: No Chronic Diseases Denies: HIV - Surgical History Surgical History: No Surg Hx - Family History Family History: States: Unknown Family Hx - Social History Current smoker - smoking cessation education provided: No Alcohol: None Drugs: Denies - Home Medications Home Medications: Ambulatory Orders Medication Instructions Recorded RX: Multivitamin [Multi-Vitamin 1 tab PO DAILY 01/06/18 Daily] RX: levoFLOXacin [Levaquin] 500 mg PO DAILY #10 tab 01/11/18 - Allergies Allergies/Adverse Reactions: Allergies Allergy/AdvReac Type Severity Reaction Status Date / Time No Known Allergies Allergy Verified 05/06/18 17:01 Review of Systems ROS Statement: Except As Marked, All Systems Reviewed And Found Negative Psych: Positive for: Anxiety Physical Exam - Reviewed Nursing Documentation Reviewed: Yes Vital Signs Reviewed: Yes - Physical Exam Appears: Positive for: Non-toxic, No Acute Distress Head Exam: Positive for: ATRAUMATIC, NORMAL INSPECTION, NORMOCEPHALIC Skin: Positive for: Normal Color Eye Exam: Positive for: Normal appearance, EOMI, PERRL ENT: Positive for: Normal ENT Inspection Neck: Positive for: Normal Cardiovascular/Chest: Positive for: Regular Rate, Rhythm Respiratory: Positive for: Normal Breath Sounds. Negative for: Wheezing, Respiratory Distress Gastrointestinal/Abdominal: Positive for: Normal Exam Extremity: Positive for: Normal ROM (upper/lower) Neurologic/Psych: Positive for: Alert, Oriented - Laboratory Results Result Diagrams: 05/06/18 17:49 05/06/18 17:49 Urine POC: Negative - ECG O2 Sat by Pulse Oximetry: 100 (RA) Pulse Ox Interpretation: Normal Medical Decision Making Medical Decision Making: Initial Impression: Anxiety Initial Plan: * EKG * Labs * 1:1 OBS Time: 2049 --Upon crisis evaluation, patient is medically stable for discharge home, as per Dr. Chan, and requires no further treatment in the ED at this time. Counseling was provided and all questions were answered regarding diagnosis. Repeat vitals are improved. There is agreement to discharge plan. Return if symptoms persist or worsen. repeat pulse normal (80s) Clinical Impression: Adjustment disorder Scribe Attestation: Documented by Yaneth Escobedo, acting as a scribe for Nolvia Dawson MD. Provider Scribe Attestation: All medical record entries made by the Scribe were at my direction and personally dictated by me. I have reviewed the chart and agree that the record accurately reflects my personal performance of the history, physical exam, medical decision making, and the department course for this patient. I have also personally directed, reviewed, and agree with the discharge instructions and disposition. Disposition - Clinical Impression Clinical Impression: Adjustment disorder - Patient ED Disposition Is Patient to be Admitted: No Counseled Patient/Family Regarding: Studies Performed, Diagnosis - Disposition Disposition: Routine/Home Disposition Time: 20:40 Condition: IMPROVED Additional Instructions: follow up with outpatient services return to the ED with any worsening or concerning symptoms Instructions: Adjustment Disorder Forms: [employer] (Guatemalan)
[2018-05-06 22:05] VITALS: BP 123/67; PULSE 73; RESP 18; TEMP 99.1
--- NOTE | 2018-05-07 07:05 | CARD ---
APPROVED REPORT Date of service: 05/06/2018 EKG Measurement Heart [id number] <Conclusion> Normal sinus rhythm Normal ECG
== END 2018-05-06 21:10 | disposition home or self-care (01) ==
LOC: H.ER 16:58
DX: F43.22 Adjustment disorder with anxiety (principal); Z00.8 Encounter for other general examination
CPT/HCPCS: 80048; 81003; 81025; 85025; 93005; 99283; G0480

== ENCOUNTER 2018-07-03 15:59 | Emergency (ER) | payer BC ==
[2018-07-03 16:31] VITALS: BP 119/71; PULSE 73; RESP 18; TEMP 98.1; O2SAT 100
--- NOTE | 2018-07-03 16:36 | ED PDOC ---
HPI: Psych/Substance Abuse Time Seen by Provider: 07/03/18 16:34 Chief Complaint (Nursing): Psychiatric Evaluation Chief Complaint (Provider): crisis eval History Per: Patient Additional Complaint(s): 23 y/o female presents for crisis eval. Patient states since last night she has been feeling suicidal but she denies plan. Patient was at her therapist office and her therapist recommended that she come to the ED. Patient denies any alcohol or drug use and she offers no acute medical complaints. Past Medical History Reviewed: Historical Data, Nursing Documentation, Vital Signs Vital Signs: Last Vital Signs Temp 98.1 F 07/03/18 16:28 Pulse 73 07/03/18 16:28 Resp 18 07/03/18 16:28 BP 119/71 07/03/18 16:28 Pulse Ox 100 07/03/18 16:28 - Medical History PMH: No Chronic Diseases - Surgical History Surgical History: No Surg Hx - Family History Family History: States: No Known Family Hx - Living Arrangements Living Arrangements: With Family - Social History Current smoker - smoking cessation education provided: No Alcohol: None Drugs: Denies - Home Medications Home Medications: Ambulatory Orders Medication Instructions Recorded Multivitamin [Multi-Vitamin Daily] 1 tab PO DAILY 01/06/18 levoFLOXacin [Levaquin] 500 mg PO DAILY #10 tab 01/11/18 - Allergies Allergies/Adverse Reactions: Allergies Allergy/AdvReac Type Severity Reaction Status Date / Time No Known Allergies Allergy Verified 07/03/18 16:27 Review of Systems ROS Statement: Except As Marked, All Systems Reviewed And Found Negative Psych: Positive for: Suicidal ideation Physical Exam - Reviewed Nursing Documentation Reviewed: Yes Vital Signs Reviewed: Yes - Physical Exam Appears: Positive for: Well, Non-toxic, No Acute Distress Skin: Positive for: Normal Color. Negative for: Rash Eye Exam: Positive for: Normal appearance Cardiovascular/Chest: Positive for: Regular Rate, Rhythm Respiratory: Positive for: Normal Breath Sounds. Negative for: Wheezing, Respiratory Distress Extremity: Positive for: Normal ROM Neurologic/Psych: Positive for: Alert, Oriented - Laboratory Results Result Diagrams: 07/03/18 18:00 07/03/18 18:00 - ECG O2 Sat by Pulse Oximetry: 100 Pulse Ox Interpretation: Normal Medical Decision Making Medical Decision Makin23 y/o here for crisis eval Plan: 1:1 observation Crisis consult CBC CMP UA UDS BAL CXR - ordered but patient refused study As per crisis counselor and psychiatrist plant operations engineer Dr. Izquierdo, patient does not meet criteria for admission and is stable for discharge. Disposition - Clinical Impression Clinical Impression: Depression Counseled Patient/Family Regarding: Need For Followup - Disposition Referrals: [facility] [Outside] Disposition: Routine/Home Disposition Time: 20:07 Condition: STABLE Additional Instructions: Follow up as directed. Instructions: Depression Forms: [employer] (Surinamese) Results - Lab Results Lab Results: 07/03/18 07/03/18 07/03/18 18:00 18:00 17:23 WBC 4.9 RBC 4.32 Hgb 13.0 Hct 38.7 MCV 89.6 MCH 30.0 MCHC 33.5 RDW 13.3 Plt Count 149 MPV 11.0 Neut % (Auto) 55.2 Lymph % (Auto) 36.1 [place] % (Auto) 7.5 Eos % (Auto) 0.5 Baso % (Auto) 0.7 Neut # (Auto) 2.7 Lymph # (Auto) 1.8 [place] # (Auto) 0.4 Eos # (Auto) 0.0 Baso # (Auto) 0.0 Sodium 140 Potassium 4.0 Chloride 101 Carbon Dioxide 24 Anion Gap 19 BUN 12 Creatinine 0.8 Est GFR ( Amer) > 60 Est GFR (Non-Af Amer) > 60 Random Glucose 76 Calcium 9.7 Total Bilirubin 0.4 AST 22 ALT 35 Alkaline Phosphatase 52 Total Protein 7.4 Albumin 4.4 Globulin 3.0 Albumin/Globulin Ratio 1.4 Urine Color Yellow Urine Clarity Cloudy Urine pH 5.0 Ur Specific [place] 1.031 H Urine Protein 100 Urine Glucose (UA) Neg Urine Ketones 80 Urine Blood Small Urine Nitrate Negative Urine Bilirubin Negative Urine Urobilinogen 0.2-1.0 Ur Leukocyte Esterase Neg Urine RBC (Auto) 5 H Urine Microscopic WBC 4 Ur Squamous Epith Cells 28 H Urine Bacteria Rare Hyaline Casts 3-5 H Urine Opiates Screen Urine Methadone Screen Ur Barbiturates Screen Ur Phencyclidine Scrn Ur Amphetamines Screen U Benzodiazepines Scrn U Oth Cocaine Metabols U Cannabinoids Screen Alcohol, Quantitative < 10 07/03/18 17:23 WBC RBC Hgb Hct MCV MCH MCHC RDW Plt Count MPV Neut % (Auto) Lymph % (Auto) [place] % (Auto) Eos % (Auto) Baso % (Auto) Neut # (Auto) Lymph # (Auto) [place] # (Auto) Eos # (Auto) Baso # (Auto) Sodium Potassium Chloride Carbon Dioxide Anion Gap BUN Creatinine Est GFR ( Amer) Est GFR (Non-Af Amer) Random Glucose Calcium Total Bilirubin AST ALT Alkaline Phosphatase Total Protein Albumin Globulin Albumin/Globulin Ratio Urine Color Urine Clarity Urine pH Ur Specific [place] Urine Protein Urine Glucose (UA) Urine Ketones Urine Blood Urine Nitrate Urine Bilirubin Urine Urobilinogen Ur Leukocyte Esterase Urine RBC (Auto) Urine Microscopic WBC Ur Squamous Epith Cells Urine Bacteria Hyaline Casts Urine Opiates Screen Negative Urine Methadone Screen Negative Ur Barbiturates Screen Negative Ur Phencyclidine Scrn Negative Ur Amphetamines Screen Negative U Benzodiazepines Scrn Negative U Oth Cocaine Metabols Negative U Cannabinoids Screen Negative Alcohol, Quantitative
[2018-07-03 18:25] LABS: SQUAMOUS EPITHIAL 28 /hpf (0-5); URINE BACTERIA RARE (<OCC); URINE BILIRUBIN NEGATIVE (NEGATIVE); URINE BLOOD SMALL (NEGATIVE); URINE CLARITY CLOUDY (Clear); URINE GLUCOSE (UA) NEG (NEGATIVE); URINE LEUKOCYTE ESTERASE NEG Leu/uL (Negative); URINE PROTEIN 100 mg/dL (NEGATIVE); URINE UROBILINOGEN 0.2-1.0 mg/dL (0.2-1.0)
[2018-07-03 18:25] LABS: BASO % 0.7 % (0.0-2.0); EOS % 0.5 % (0.0-4.0); LYMPH # 1.8 K/uL (1.0-4.3); LYMPH % 36.1 % (20.0-40.0); MEAN CELL VOLUME 89.6 fl (81.0-99.0); MEAN CORPUSCULAR HGB CONC 33.5 g/dL (33.0-37.0); MONO # 0.4 K/uL (0.0-0.8); MONO % 7.5 % (0.0-10.0); NEUT # 2.7 K/uL (1.8-7.0); NEUT % 55.2 % (50.0-75.0); RBC 4.32 Mil/uL (3.80-5.20); RED CELL DISTRIBUTION WIDTH 13.3 % (11.5-14.5); WHITE BLOOD COUNT 4.9 K/uL (4.8-10.8)
[2018-07-03 18:26] LABS: URINE COLOR YELLOW (YELLOW)
[2018-07-03 18:33] LABS: BARBITURATES, UR NEGATIVE (NEGATIVE); BENZODIAZEPINES, UR NEGATIVE (NEGATIVE); OPIATES, UR NEGATIVE (NEGATIVE); PHENCYCLIDINE, UR NEGATIVE (NEGATIVE)
[2018-07-03 18:40] LABS: ALB/GLOB RATIO 1.4 (1.0-2.1); ALBUMIN 4.4 g/dL (3.5-5.0); ALT/SGPT 35 U/L (9-52); AST/SGOT 22 U/L (14-36); BLOOD UREA NITROGEN 12 mg/dl (7-17); CALCIUM 9.7 mg/dL (8.4-10.2); GFR NON-AFRICAN AMERICAN > 60
== END 2018-07-03 20:30 | disposition home or self-care (01) ==
LOC: H.ER 15:59
DX: F32.9 Major depressive disorder, single episode, unspecified (principal)
CPT/HCPCS: 80053; 81003; 81025; 85025; 99282; G0480

== ENCOUNTER 2018-10-26 21:49 | Emergency (ER) | payer BC ==
[2018-10-26 21:53] VITALS: RESP 16
[2018-10-26] MEDS ORDERED: Sodium Chloride 0.9% 1,000 ML IV STA (22:04)
[2018-10-26 22:59] LABS: BASO % 0.4 % (0.0-2.0); EOS % 0.1 % (0.0-4.0); HEMOGLOBIN 13.4 g/dL (12.0-16.0); LYMPH # 0.7 K/uL (1.0-4.3); LYMPH % 12.5 % (20.0-40.0); MEAN CELL VOLUME 89.4 fl (81.0-99.0); MEAN CORPUSCULAR HGB CONC 33.6 g/dL (33.0-37.0); MEAN PLATELET VOLUME 10.6 fl (7.2-11.7); MONO # 0.4 K/uL (0.0-0.8); MONO % 7.6 % (0.0-10.0); NEUT # 4.6 K/uL (1.8-7.0); NEUT % 79.4 % (50.0-75.0); NRBC % 0.1 % (0.0-0.0); RBC 4.47 Mil/uL (3.80-5.20); RED CELL DISTRIBUTION WIDTH 12.9 % (11.5-14.5); WHITE BLOOD COUNT 5.8 K/uL (4.8-10.8)
[2018-10-26 23:06] LABS: ALB/GLOB RATIO 1.5 (1.0-2.1); ALBUMIN 4.5 g/dL (3.5-5.0); ALT/SGPT 30 U/L (9-52); AST/SGOT 24 U/L (14-36); BLOOD UREA NITROGEN 9 mg/dl (7-17); GFR NON-AFRICAN AMERICAN > 60
[2018-10-27] MEDS ORDERED: cefTRIAXone (Rocephin) 1 gm Inj ONE (00:14)
--- NOTE | 2018-10-27 00:29 | ED PDOC ---
HPI: Abdomen Time Seen by Provider: 10/26/18 21:57 Chief Complaint (Nursing): Abdominal Pain Chief Complaint (Provider): Diffuse abdominal pain, nausea History Per: Patient History/Exam Limitations: no limitations Onset/Duration Of Symptoms: Days Outside of [place] travel?: No Current Symptoms Are (Timing): Still Present Location Of Pain/Discomfort: Diffuse Quality Of Discomfort: Dull, Cramping Additional Complaint(s): 23 yo female presents for evaluation of diffuse abdominal pain, cramping and body aches. Pt states her abdominal pain is associated with intermittent nausea and began after eating sushi. Pt denies fever but reports chills. Pt was on a beach today and was sunburnt. PT denies abnormal BM and any urinary symptoms Past Medical History Reviewed: Historical Data, Nursing Documentation, Vital Signs Vital Signs: Last Vital Signs Temp 99.9 F H 10/26/18 21:53 Pulse 98 H 10/26/18 21:53 Resp 16 10/26/18 21:53 BP 110/73 10/26/18 21:53 Pulse Ox 98 10/26/18 21:53 Primary Care Provider: Procedure,Nonphys - Medical History PMH: Denies: Diabetes, Hepatitis, HIV, HTN, Seizures, Sexually Transmitted Disease - Surgical History Surgical History: No Surg Hx - Family History Family History: States: Unknown Family Hx - Home Medications Home Medications: Ambulatory Orders Medication Instructions Recorded Multivitamin [Multi-Vitamin Daily] 1 tab PO DAILY 01/06/18 levoFLOXacin [Levaquin] 500 mg PO DAILY #10 tab 01/11/18 Ciprofloxacin [Cipro] 500 mg PO BID #10 tab 10/27/18 - Allergies Allergies/Adverse Reactions: Allergies Allergy/AdvReac Type Severity Reaction Status Date / Time No Known Allergies Allergy Verified 07/03/18 16:27 Review of Systems ROS Statement: Except As Marked, All Systems Reviewed And Found Negative Constitutional: Negative for: Fever, Chills Cardiovascular: Negative for: Chest Pain, Palpitations Respiratory: Negative for: Cough, Shortness of Breath Gastrointestinal: Positive for: Nausea, Abdominal Pain (Diffuse abdominal pain ). Negative for: Vomiting Neurological: Negative for: Weakness, Numbness Physical Exam - Reviewed Nursing Documentation Reviewed: Yes Vital Signs Reviewed: Yes - Physical Exam Appears: Positive for: Well, Non-toxic, No Acute Distress Head Exam: Positive for: ATRAUMATIC, NORMAL INSPECTION, NORMOCEPHALIC Skin: Positive for: Normal Color, Warm, DRY Eye Exam: Positive for: Normal appearance ENT: Positive for: Normal ENT Inspection Neck: Positive for: Normal Cardiovascular/Chest: Positive for: Regular Rate, Rhythm Respiratory: Positive for: Normal Breath Sounds. Negative for: Accessory Muscle Use, Respiratory Distress Back: Positive for: Normal Inspection Extremity: Positive for: Normal ROM Neurological/Psych: Positive for: Awake, Alert, Normal Tone - Laboratory Results Result Diagrams: 10/26/18 22:44 10/26/18 22:44 Lab Results: Total Bilirubin 0.3 mg/dl (0.2-1.3) 10/26/18 22:44 AST 24 U/L (14-36) 10/26/18 22:44 ALT 30 U/L (9-52) 10/26/18 22:44 Alkaline Phosphatase 51 U/L (38-126) 10/26/18 22:44 Total Protein 7.5 G/DL (6.3-8.2) 10/26/18 22:44 Albumin 4.5 g/dL (3.5-5.0) 10/26/18 22:44 Globulin 3.0 gm/dL (2.2-3.9) 10/26/18 22:44 Albumin/Globulin Ratio 1.5 (1.0-2.1) 10/26/18 22:44 - ECG O2 Sat by Pulse Oximetry: 98 Pulse Ox Interpretation: Normal Medical Decision Making Medical Decision Making: (+) leuks on urine. cbc, cmp normal Disposition - Clinical Impression Clinical Impression: UTI (urinary tract infection) - Patient ED Disposition Is Patient to be Admitted: No Counseled Patient/Family Regarding: Diagnosis, Need For Followup, Rx Given - Disposition Disposition: Routine/Home Disposition Time: 00:32 Condition: GOOD Prescriptions: Ciprofloxacin [Cipro] 500 mg PO BID #10 tab Instructions: Urinary Tract Infections in Adults Forms: [employer] (South Sudanese)
[2018-10-27 01:40] VITALS: BP 108/52; PULSE 73; TEMP 98.1; O2SAT 99
== END 2018-10-27 01:39 | disposition home or self-care (01) ==
LOC: H.ER 21:49
DX: N39.0 Urinary tract infection, site not specified (principal)
CPT/HCPCS: 80053; 81025; 85025; 87040; 87086; 87181; 96374; 96375; 99284; J0696; J1885; J2405; J7030

== ENCOUNTER 2018-10-27 21:55 | Emergency (ER) | payer BC ==
[2018-10-27] MEDS ORDERED: Sodium Chloride 0.9% 1,000 ML IV STA (22:09)
[2018-10-27] MEDS ORDERED: DiphenhydrAMINE 50 mg/ml Inj IVP STA (22:09)
[2018-10-27] MEDS ORDERED: DiphenhydrAMINE 50 mg/ml Inj ONE (22:16)
[2018-10-27 22:50] LABS: BASO % 0.4 % (0.0-2.0); EOS % 0.1 % (0.0-4.0); HEMOGLOBIN 13.3 g/dL (12.0-16.0); LYMPH # 0.6 K/uL (1.0-4.3); LYMPH % 10.4 % (20.0-40.0); MEAN CELL VOLUME 89.5 fl (81.0-99.0); MEAN CORPUSCULAR HEMOGLOBIN 29.9 pg (27.0-31.0); MEAN CORPUSCULAR HGB CONC 33.4 g/dL (33.0-37.0); MEAN PLATELET VOLUME 10.8 fl (7.2-11.7); MONO # 0.3 K/uL (0.0-0.8); MONO % 5.3 % (0.0-10.0); NEUT # 4.7 K/uL (1.8-7.0); NEUT % 83.8 % (50.0-75.0); RBC 4.45 Mil/uL (3.80-5.20); RED CELL DISTRIBUTION WIDTH 13.3 % (11.5-14.5); WHITE BLOOD COUNT 5.7 K/uL (4.8-10.8)
--- NOTE | 2018-10-27 22:57 | ED PDOC ---
HPI: Abdomen Time Seen by Provider: 10/27/18 22:07 Chief Complaint (Nursing): GI Problem Chief Complaint (Provider): GI Problem History Per: Patient History/Exam Limitations: no limitations Onset/Duration Of Symptoms: Days Current Symptoms Are (Timing): Still Present Additional Complaint(s): 23 y/o female with no significant PMHx presents to the ED for evaluation of vo miting and diarrhea since yesterday. Patient reports of having eaten sushi yesterday and then developed abdominal discomfort associated with an episode of diarrhea yesterday. At that time, patient reports of having went to an ER where she was found to have findings of a UTI. All other labs were normal at that time and patient had no further episodes of diarrhea. Today, patient reports of experiencing episodes of watery, non-bloody diarrhea and non-bloody, non-bilious vomiting as well as increased abdominal pain in the last two hours. Patient notes of last taking Cipro this morning and of eating a salad earlier today. PMD: no provider Past Medical History Reviewed: Historical Data, Nursing Documentation, Vital Signs Vital Signs: Last Vital Signs Temp 99.4 F 10/27/18 21:58 Pulse 128 H 10/27/18 21:58 Resp 16 10/27/18 21:58 BP 130/65 10/27/18 21:58 Pulse Ox 100 10/27/18 21:58 - Medical History PMH: No Chronic Diseases Denies: Diabetes, Hepatitis, HIV, HTN, Seizures, Sexually Transmitted Disease - Surgical History Surgical History: No Surg Hx - Family History Family History: States: No Known Family Hx - Social History Current smoker - smoking cessation education provided: No Alcohol: None Drugs: Denies - Home Medications Home Medications: Ambulatory Orders Medication Instructions Recorded Multivitamin [Multi-Vitamin Daily] 1 tab PO DAILY 01/06/18 levoFLOXacin [Levaquin] 500 mg PO DAILY #10 tab 01/11/18 Ciprofloxacin [Cipro] 500 mg PO BID #10 tab 10/27/18 Dicyclomine [Bentyl] 20 mg PO BID #30 tab 10/28/18 Ondansetron ODT [Zofran ODT] 4 mg PO Q8 PRN #12 odt 10/28/18 - Allergies Allergies/Adverse Reactions: Allergies Allergy/AdvReac Type Severity Reaction Status Date / Time No Known Allergies Allergy Verified 07/03/18 16:27 Review of Systems ROS Statement: Except As Marked, All Systems Reviewed And Found Negative (as per HPI) Gastrointestinal: Positive for: Vomiting, Abdominal Pain, Diarrhea Skin: Positive for: Rash (diffuse erythematous rash from sunburn yesterday) Physical Exam - Reviewed Nursing Documentation Reviewed: Yes Vital Signs Reviewed: Yes - Physical Exam Appears: Positive for: In Acute Distress (in acute painful distress) Head Exam: Positive for: ATRAUMATIC Skin: Positive for: Warm, Dry Eye Exam: Positive for: EOMI, PERRL ENT: Positive for: Other (tachy mucous membranes) Neck: Positive for: Painless ROM, Supple Cardiovascular/Chest: Positive for: Regular Rate, Rhythm Respiratory: Positive for: Normal Breath Sounds. Negative for: Respiratory Distress Gastrointestinal/Abdominal: Positive for: Soft, Tenderness (bilateral lower quadrant tenderness, distractable). Negative for: Mass, Distended, Guarding, Rebound Neurological/Psych: Positive for: Awake, Alert, Mood/Affect (Anxious ). Negative for: Motor/Sensory Deficits - Laboratory Results Result Diagrams: 10/27/18 22:46 10/27/18 22:46 - ECG O2 Sat by Pulse Oximetry: 100 (RA) Pulse Ox Interpretation: Normal Medical Decision Making Medical Decision Making: Time: 2207 Impression: Abdominal pain with gastroenteritis symptoms. Differentials include but not limited to gastroenteritis, colitis, appendicitis, dehydration and electrolyte abnormality. Plan: -- Type and Screen -- CT Abd/Pelvis IV Contrast ONLY -- Alcohol Serum -- CMP -- Urine Drug Screen -- Lact Acid, Plasma -- Lipase -- ED Urine Dipstick -- CBC with Differentials -- PTT -- Prothrombin Time -- Benadryl 25 mg IVP -- Sodium Chloride IV 1000 mls/hr -- Reglan 10 mg IV -- Toradol 15 mg IVP -- Blood Culture -- Stool Culture -- IV Insertion Scribe Attestation: Documented by Stephany Alston, acting as a scribe Bonnie Hamilton MD. Provider Scribe Attestation: All medical record entries made by the Scribe were at my direction and personally dictated by me. I have reviewed the chart and agree that the record accurately reflects my personal performance of the history, physical exam, medical decision making, and the department course for this patient. I have also personally directed, reviewed, and agree with the discharge instructions and disposition. Disposition - Clinical Impression Clinical Impression: Gastroenteritis - Disposition Disposition: Transfer of Care Disposition Time: 00:00 Condition: STABLE Prescriptions: Dicyclomine [Bentyl] 20 mg PO BID #30 tab Ondansetron ODT [Zofran ODT] 4 mg PO Q8 PRN #12 odt PRN Reason: Nausea/Vomiting Patient Signed Over To: Mauricio Bowie Handoff Comments: Pending CT, reassessment and final ER disposition
[2018-10-27 23:01] LABS: INR 1.2; PROTHROMBIN TIME 13.7 Seconds (9.8-13.1)
[2018-10-27 23:04] LABS: PARTIAL THROMBOPLASTIN TIME 30.7 Seconds (25.6-37.1)
[2018-10-27 23:05] LABS: ALB/GLOB RATIO 1.4 (1.0-2.1); ALBUMIN 4.4 g/dL (3.5-5.0); ALT/SGPT 35 U/L (9-52); AST/SGOT 34 U/L (14-36); BLOOD UREA NITROGEN 8 mg/dl (7-17); CALCIUM 8.9 mg/dL (8.4-10.2); GFR NON-AFRICAN AMERICAN > 60; LIPASE 66 U/L (23-300)
[2018-10-27] MEDS ORDERED: Sodium Chloride 0.9% 50 ML IV ONE (23:19)
[2018-10-27] MEDS ORDERED: Iohexol 300 100 ML IJ ONE (23:19)
[2018-10-28 00:25] VITALS: BP 116/68; PULSE 90; RESP 18
--- NOTE | 2018-10-28 00:47 | ED PDOC ---
- Laboratory Results Result Diagrams: 10/27/18 22:46 10/27/18 22:46 Lab Results: PT 13.7 Seconds (9.8-13.1) H 10/27/18 22:51 INR 1.2 10/27/18 22:51 APTT 30.7 Seconds (25.6-37.1) 10/27/18 22:51 Total Bilirubin 0.5 mg/dl (0.2-1.3) 10/27/18 22:46 AST 34 U/L (14-36) 10/27/18 22:46 ALT 35 U/L (9-52) 10/27/18 22:46 Alkaline Phosphatase 42 U/L (38-126) 10/27/18 22:46 Total Protein 7.4 G/DL (6.3-8.2) 10/27/18 22:46 Albumin 4.4 g/dL (3.5-5.0) 10/27/18 22:46 Globulin 3.0 gm/dL (2.2-3.9) 10/27/18 22:46 Albumin/Globulin Ratio 1.4 (1.0-2.1) 10/27/18 22:46 Lipase 66 U/L (23-300) 10/27/18 22:46 - ECG O2 Sat by Pulse Oximetry: 97 (RA) Pulse Ox Interpretation: Normal Medical Decision Making Medical Decision Making: Time: 0000 --Patient endorsed by Dr. Hamilton, pending CT abdomen/pelvis. Time: 35 CT Abdomen/ Pelvis Findings: 1.7 cm left adrenal benign adenoma. Fluid-filled small and large bowels. The liver is of uniform attenuation without mass or defect. There is no intra or extrahepatic biliary ductal dilatation. The spleen is normal. The gallbladder is within normal limits. The pancreas is of normal contour and attenuation characteristics. There is no evidence of adrenal mass. Both kidneys demonstrate prompt and equal nephrograms. The kidneys are normal in size, shape and configuration. There is no evidence of renal or ureteral mass. No renal or ureteral calculi are identified. There is no hydroureter or hydronephrosis. No evidence for appendicitis. There is no bowel wall thickening. No evidence for small or large bowel obstruction. There is no evidence of abdominal ascites or lymphadenopathy. There is no evidence of intrinsic or extrinsic bladder mass. There is no pelvic ascites or lymphadenopathy. Images of the lung bases show no evidence of pleural or parenchymal mass. There are no pleural effusions. The bony structures are free of lytic or blastic lesions. IMPRESSION: Fluid filled small and large bowels. Ileus versus enteritis. --Patient re-evaluated at bedside, states she's feeling better, just with mild cramping --Informed of results, states today's and yesterday's presentation may have been from eating bad sushi --Tolerating PO, appearing well at this time, stable for outpatient followup Scribe Attestation: Documented by Adrienne Patel acting as a scribe for Mauricio Bowie MD. Provider Scribe Attestation: All medical record entries made by the Scribe were at my direction and personally dictated by me. I have reviewed the chart and agree that the record accurately reflects my personal performance of the history, physical exam, medical decision making, and the department course for this patient. I have also personally directed, reviewed, and agree with the discharge instructions and disposition. Disposition - Clinical Impression Clinical Impression: Gastroenteritis - POA Present On Arrival: None - Disposition Referrals: [facility] [Outside] Disposition: Routine/Home Disposition Time: 00:36 Condition: IMPROVED Prescriptions: Dicyclomine [Bentyl] 20 mg PO BID #30 tab Ondansetron ODT [Zofran ODT] 4 mg PO Q8 PRN #12 odt PRN Reason: Nausea/Vomiting Instructions: Viral Gastroenteritis, Adult (DC) Forms: [employer] (Algerian)
[2018-10-28 01:40] VITALS: TEMP 99.6
[2018-10-28 02:50] LABS: BARBITURATES, UR NEGATIVE (NEGATIVE); BENZODIAZEPINES, UR NEGATIVE (NEGATIVE); OPIATES, UR NEGATIVE (NEGATIVE); PHENCYCLIDINE, UR NEGATIVE (NEGATIVE)
--- NOTE | 2018-10-28 12:00 | CT ---
Date of service: 10/27/2018 PROCEDURE: CT Abdomen and Pelvis with contrast HISTORY: severe abd pain COMPARISON: 01/10/2018 TECHNIQUE: Contrast dose: 90 cc Omnipaque 300 Radiation dose: Total exam DLP = 489.77 mGy-cm. This CT exam was performed using one or more of the following dose reduction techniques: Automated exposure control, adjustment of the mA and/or kV according to patient size, and/or use of iterative reconstruction technique. FINDINGS: LOWER THORAX: Unremarkable. LIVER: Unremarkable. No gross lesion or ductal dilatation. GALLBLADDER AND BILE DUCTS: Unremarkable. PANCREAS: Unremarkable. No gross lesion or ductal dilatation. SPLEEN: Unremarkable. ADRENALS: Unremarkable. No mass. KIDNEYS AND URETERS: Unremarkable. No hydronephrosis. No solid mass. VASCULATURE: Unremarkable. No aortic aneurysm. No aortic atherosclerotic calcification or mural plaque present. BOWEL: Is moderate of fluid throughout the colon and small bowel loops. A mild ileus or mild enteritis is compatible with this. No marked dilatation to in mechanical obstruction noted. No obstruction. No gross mural thickening. APPENDIX: Normal appendix. PERITONEUM: Unremarkable. No free fluid. No free air. LYMPH NODES: Unremarkable. No enlarged lymph nodes. BLADDER: Unremarkable. REPRODUCTIVE: Unremarkable. BONES: No acute fracture. OTHER FINDINGS: None. IMPRESSION: No mechanical obstruction seen. Possible ileus and/or enteritis. Findings were mentioned with the preliminary [facility] report. No CT evidence of acute appendicitis. The appendix appears within normal limits on this exam. More symmetrical normal appearing renal enhancement prior inferred right pyelonephritis apparent renal inflammatory changes have resolved. The left adrenal benign-appearing hypodense mass approximately 1 by a 1.4 cm in size is slightly more rounded appearance [id number] benign left adrenal adenoma is 1 consideration. Previously was more oval shaped. Benign etiology is believed most likely. If further evaluation is needed consider follow-up MRI of the adrenals. Findings in the drain is were not initially mention on the preliminary [facility] report. Comments: Study marked for PA review .
[2018-10-29 15:52] VITALS: O2SAT 100
== END 2018-10-28 02:00 | disposition home or self-care (01) ==
LOC: H.ER 21:55
DX: K52.9 Noninfective gastroenteritis and colitis, unspecified (principal)
CPT/HCPCS: 74177; 80053; 83605; 83690; 85025; 85610; 85730; 86850; 86900; 87040; 87045; 96361; 96374; 96375; 99283; G0480; J1200; J1885; J2765; J7030; Q9967